=== PATIENT | female | born 1970 | race Caucasian/White ===

== ENCOUNTER 2021-03-02 07:31 | Emergency (ER) | payer OTHER ==
[~2021-03-02] VITALS: Ht 170.2 cm; Wt 68.0 kg
[2021-03-02] MEDS ORDERED: NP THYROID90 MG (07:47)
[2021-03-02] MEDS ORDERED: PREDNISONE20 MG PO (08:32)
[2021-03-02] MEDS ORDERED: NEURONTIN100 MG PO (08:32)
== END 2021-03-02 09:10 | disposition home or self-care (01) ==
LOC: ED 07:31
DX: M54.41 Lumbago with sciatica, right side (principal); E03.9 Hypothyroidism, unspecified
CPT/HCPCS: 96372; 99283-25; J1100